=== PATIENT | male | born 1990 | race Caucasian/White ===

== ENCOUNTER 2025-10-22 22:34 | Emergency (ER) | payer MEDICARE, MEDICAID, SELFPAY ==
[2025-10-22 22:35] VITALS: BP 126/74; PULSE 70; RESP 16; TEMP 36.9; O2SAT 98; BMI 24.2
--- NOTE | 2025-10-22 22:46 | XR_ITS ---
PROCEDURE INFORMATION: Exam: XR Chest Exam date and time: 10/22/2025 10:51 PM Age: 35 years old Clinical indication: Pain; Chest pressure; Additional info: Chest pain TECHNIQUE: Imaging protocol: Radiologic exam of the chest. Views: 2 views. Total images: 2 COMPARISON: No relevant prior studies available. FINDINGS: Tubes, catheters and devices: EKG leads are present. Lungs: Unremarkable. No consolidation. No pulmonary vascular congestion or edema. Pleural spaces: Unremarkable. No pleural effusion. No pneumothorax. Heart/Mediastinum: Unremarkable. No cardiomegaly. No mediastinal widening or hilar enlargement. Bones/joints: Thoracic dextrocurvature. Unremarkable chest wall structures. IMPRESSION: No radiographically acute cardiopulmonary process.
--- NOTE | 2025-10-22 22:47 | HMH.EDGENADL ---
Discharge Plan Disposition Patient Disposition: Home, Self-Care Condition: Good Referrals Follow up/Referrals: Provider,Referral, [Primary Care Provider, Medical] - See instructions Clinical Impressions Clinical Impression: Intoxication by drug Print Language Print Language: Turkish Discharge ED Provider: America Hinds General Adult HPI General Chief complaint: Dizziness Stated complaint: Abdominal Pain Time Seen by Provider: 10/22/25 22:46 History of Present Illness HPI narrative: Patient is a 35-year-old gentleman who came to the emergency department with burning pain in his chest after smoking his vape just prior to arrival. Patient states that he is unsure what was in his vape. States that his chest pain is now resolved but he still has a burning sensation. Denies feeling short of breath. Patient denies having any abdominal pain. Patient has not had any vomiting patient denies any diarrhea. Patient denies any headache. Patient states that he typically does not vape and vape for the first time today. Patient states he has no medical problems. Related Data Allergies Allergy/AdvReac Type Severity Reaction Status Date / Time No Known Allergies Allergy Verified 10/22/25 22:52 [facility] Disclaimer: The information contained in this section may have been updated after the patient was seen, as this information can be updated by other users. Social History (Updated 10/23/25 @ 00:08 by America Hinds DO) Smoking Status: Current every day smoker alcohol intake: never current occupational status: other Travel in the last 8 weeks?: None Have you lived/traveled outside [place] in past 30 days?: No Contact w/someone who lives/traveled outside US past 30 days?: No Exposure to someone with infectious disease in past 14 days?: No Do you have a fever (greater than 100.4 F or 38 C)?: No Have you tested positive for COVID-19?: No Exposed to someone with COVID-19 in past 14 days?: No Do you have a sore throat?: No Do you have a cough?: No Do you have any weakness?: No Do you have any diarrhea?: No Are you experiencing any unusual bleeding?: No Do you have any muscle aches/pain?: No Do you have any abdominal pain?: No Are you experiencing loss of taste or smell?: No ROS Obtained: Yes All systems reviewed & no additional complaints except as documented and Yes Systems reviewed as appropriate & no additional complaints except as documented Physical Exam General General appearance: alert and in no apparent distress Head Head exam: atraumatic, normocephalic and normal inspection Eye Eye exam: Present normal appearance, PERRL and EOMI; Absent scleral icterus ENT ENT exam: Present normal exam and normal external ear exam Neck Neck exam: Present normal inspection and full ROM Chest Chest inspection: Present normal inspection and symmetric chest wall rise Respiratory Respiratory exam: Present normal lung sounds bilaterally; Absent respiratory distress or wheezes Cardiovascular Cardiovascular exam: Present regular rate, normal rhythm and normal heart sounds Abdominal Exam Abdominal exam: Present soft and distention; Absent tenderness, guarding or rebound Extremities Exam Extremities exam: Present normal inspection and full ROM Back Exam Back exam: Present normal inspection and full ROM Neurological Exam Neurological exam: Present alert and oriented X3 Psychiatric Psychiatric exam: Present normal affect and normal mood Skin Skin exam: Present warm and dry Medical Decision Making Medical Records Medical records reviewed: Yes I reviewed the patient's medical records. Screening: Per USPSTF and CDC recommendations, given the prevalence of disease in our region, it is our hospital?s policy to screen for HIV and viral Hepatitis for all patients aged 18 and over and those with ongoing risk factors. Patel Inquiry Pt receiving controlled substance: No Vital Signs: 10/22/25 22:35 10/22/25 23:00 10/22/25 23:30 Temperature 98.4 F Temperature Source Oral Pulse Rate 67 68 Pulse Rate [Right Radial] 70 Respiratory Rate 16 Blood Pressure 147/81 H 124/77 Blood Pressure [Right Arm] 126/74 Blood Pressure Mean 92 88 Blood Pressure Mean [Right Arm] 91 Blood Pressure Source [Right Arm] Automatic Cuff 02 Sat by Pulse Oximetry 98 97 97 Oxygen Delivery Method Room Air Room Air Room Air 10/23/25 00:00 10/23/25 00:30 10/23/25 00:30 Temperature Temperature Source Pulse Rate 67 67 Pulse Rate [Right Radial] Respiratory Rate 16 Blood Pressure 126/77 122/78 Blood Pressure [Right Arm] Blood Pressure Mean 86 89 Blood Pressure Mean [Right Arm] Blood Pressure Source [Right Arm] 02 Sat by Pulse Oximetry 97 97 Oxygen Delivery Method Room Air Lab Data Lab results reviewed: Yes I reviewed the patient's lab results. Orders (Tests/Meds): ED MEDICATIONS Discontinued Medications Generic Name Dose Route Start Last Admin Trade Name Freq PRN Reason Stop Dose Admin Belladonna Alkaloids 60 ml 10/22/25 22:46 10/22/25 22:52 Belladonna Alkaloids 60 Ml Ml PO 10/22/25 22:47 60 ml ONCE ONE Administration ORDERS Category Date Time Status CXR 2 view (NOT portable) [XR chest 2V] Stat Exams 10/22/25 22:46 Completed Medical Decision Narrative: Patient is a 35-year-old male with no significant past medical history who presented to the emergency department from [place] with burning in his chest after smoking his vape just prior to arrival. On arrival, patient was hemodynamically stable with unremarkable vital signs. Differential includes but not limited to: Vape related lung injury, pneumothorax, arrhythmia, GERD, amongst others. On exam, patient had an unremarkable exam. Patient had bilateral breath sounds present. Patient had no chest wall tenderness. Patient had no abdominal tenderness. Patient appeared to be likely high on marijuana. A chest x-ray was obtained which was reviewed and interpreted by myself and showed no pneumothorax, focal consolidation contusion or other acute pathology. EKG was obtained and showed no acute arrhythmia or other acute ST or T wave changes. Patient was given a GI cocktail and water in the emergency department. At this time, patient further metabolized. Patient was able to tolerate oral intake. Patient was hungry. Patient ate the sandwich and the beverage and patient was able to ambulate without difficulties. At this time patient was discharged home in stable condition. Critical Care Critical Care Time Critical Care Time: No
[2025-10-22] MEDS: BELLADONNA ALKALOIDS 60 ML ML PO (22:52)
--- OUTSIDE RECORDS SUMMARY | 2025-10-22 22:53 | XMS_ITS | Clinical Summary ---
Author Organization [facility] Address [address] [place] [address] Phone Care Team Providers Care Miter Cutter Name Role Phone Unavailable Primary Care Provider Unavailabl e Allergies No known active allergies Medications * This document contains information received from the source organization and may not represent a complete record from that organization. 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 MDD (major depressive disord er), recurrent episode, moderate 06/29/2025 Psychosis 06/29/2025 Benzodiazepine dependence, continuous 06/29/2025 Social History Tobacco Use Types Packs/Day Years Used Date Smoking Tobacco: Never Assessed Sex and Gender Information Value Date Recorded Sex Assigned at Not on file Legal Sex Male 3:43 PM EDT Gender Identity Not on file Sexual Orientation Not on file Plan of Treatment Health Maintenance Due Date Last Done Comments Wellness Exam Medicare 1992 DTaP/TDaP/Td (1 - Tdap) 2008 Hepatitis B Vaccine (1 of 3 - 19+ 3-dose series) 2008 COVID-19 Vaccine ( - 2024-2 6 season) 2025 Influenza Vaccine (#1) 2025 Meningococcal B Vaccine Aged Out No l onger eligible based on patient's age to complete this topic Pneumococcal Vaccine 0-49 Aged Out No longer eligible based on patient's age to complete this topic Insurance [facility] BY [employer] MEDICARE [place] PART A AND B
[2025-10-22 23:00] VITALS: BP 147/81; PULSE 67; O2SAT 97
--- NOTE | 2025-10-22 23:12 | ECG_ITS ---
APPROVED REPORT Exam: Resting ECG HR:67 bpm ECG Measurements Heart Rate 67 AXES SC 153 P 68 QRSd 92 QRS 72 QT 375 T 64 QTc 391 Conclusion SINUS RHYTHM NORMAL ECG UNCONFIRMED REPORT Electronically signed by : MARY CARRIZALES, 10/23/2025 06:58:05
[2025-10-22 23:30] VITALS: BP 124/77; PULSE 68; O2SAT 97
[2025-10-23] VITALS: BP 126/77
[2025-10-23 00:30] VITALS: BP 122/78; PULSE 67; RESP 16; O2SAT 97
--- NOTE | 2025-10-23 00:47 | PC.NURSE ---
Called [place] to let them know this pt is ready to be picked up, they stated they don't have any transportation
--- NOTE | 2025-10-23 07:17 | PC.NURSE ---
rounded on pt at this time. sitting in bed eating breakfast. no concerns voiced at this time. will call [facility] at 8 am for transportation home for patient
[2025-10-23 07:33] VITALS: BP 117/98; PULSE 62; RESP 15; O2SAT 97
--- NOTE | 2025-10-23 08:08 | PC.NURSE ---
attempted to call [facility] with no answer
[2025-10-23 08:20] VITALS: BP 113/70; PULSE 62; RESP 15; TEMP 36.6; O2SAT 99
== END 2025-10-23 08:21 | disposition home or self-care (01) ==
PROVIDERS: Emergency Provider Student in an Organized Health Care Education/Training Program
DX: R07.9 Chest pain, unspecified (principal); F17.290 Nicotine dependence, other tobacco product, uncomplicated
CPT/HCPCS: 71046; 93005; 99284; 99285